=== PATIENT | female | born 1960 | race Caucasian/White ===

== ENCOUNTER → 2017-07-07 | Outpatient (CLI) | payer BC ==
--- NOTE | 2017-07-07 16:42 | KCIC ---
Examination: 2 views of the left clavicle HISTORY: History of displaced fracture of the left clavicle COMPARISON: None available FINDINGS: There is mild inferiorly displaced fracture of the midshaft of the left clavicle. No evidence of bony bridging healing changes identified. Left subclavian line, right subclavian lines identified. IMPRESSION: Mild displaced fracture midshaft left clavicle. Electronically signed by: Kurt Murray MD (07/07/2017 4:38 PM) [id number]
== END | disposition home or self-care (01) ==
LOC: KCIC 14:00
PROVIDERS: ATTEND Family Medicine
DX: S42.022A Displaced fracture of shaft of left clavicle, initial encounter for closed fracture (principal); X58.XXXA Exposure to other specified factors, initial encounter; Y93.89 Activity, other specified; Y92.89 Other specified places as the place of occurrence of the external cause; Y99.8 Other external cause status
CPT/HCPCS: 73000